=== PATIENT | male | born 2005 | race African-American/Black ===

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

== ENCOUNTER 2025-09-25 11:19 | Emergency (ER) | payer OTHER ==
[~2025-09-25] VITALS: Ht 162.6 cm; Wt 71.9 kg
[~2025-09-25 11:19] MED LIST changes: +AUG875T PO; +AZIT500T PO; +METH4PAK PO
[2025-09-25] MEDS ORDERED: BENZ100C97 PO (12:06)
--- NOTE | 2025-09-25 12:06 | ED.PDOC ---
SOB-HPI HPI Comments 20 year old male with a PMHx asthma, autism brought in by mother presents to the ED with a chief compliant of cough onset 2 days. Patient has been experiencing cough and nasal congestion for the past 2 days. Mother has given patient breathing treatments and Tylenol, last dose was this morning around 07:00. Patient is nonverbal. No other symptoms or modifying factors present at this time. Denies fevers chills night sweats unintentional weight loss Denies persistent chest pain, shortness of breath, leg swelling Denies history of pneumonia Denies recent international travel Chief Complaint: Cough Time Seen by MD: 12:00 Primary Care Provider: HILARY Rob notes: Medications, Allergies Information Source: Relative (Mother) Mode of Arrival: Ambulatory Severity: Moderate Timing: Days Duration: Since onset Context: At Rest PE Risk Factors: None History of: Asthma Prehospital treatment: None Modifying Factors: Nothing Associated Signs and Symptoms: Cough, Nasal Congestion Past Medical History PAST MEDICAL HISTORY: Asthma Surgical History: Denies all surgeries Family History Family History: Reviewed,noncontributory to illness, Unknown Social History Smoker: Non-Smoker Alcohol: Denies ETOH Use Drugs: Denies Drug Use Lives In: Home All Other Systems: Reviewed and Negative (as per HPI) Physical Exam General Appearance: No Apparent Distress, Normal HEENT: Normal ENT Inspection, Pharynx Normal, TMs Normal Neck: Full Range of Motion, Non-Tender, Normal, Normal Inspection Respiratory: Chest Non-Tender, Lungs Clear, No Accessory Muscle Use, No Respiratory Distress, Normal Breath Sounds Cardiovascular: No Edema, No JVD, No Murmur, No Gallop, Normal Peripheral Pulses, Regular Rate/Rhythm Breast Exam: Deferred Gastrointestinal: No Organomegaly, Non Tender, No Pulsatile Mass, Normal Bowel Sounds, Soft Genitalia: Deferred Pelvic: Deferred Rectal: Deferred Extremities: No calf tenderness, Normal capillary refill, Normal inspection, Normal range of motion, Non-tender, No pedal edema Musculoskeletal : Apperance: Normal Neurologic: Alert, neck cutter II-XII nml as Tested, No Motor Deficits, Normal Affect, Normal Mood, No Sensory Deficits Cerebellar Function: Normal Reflexes: Normal Skin: Dry, Normal Color, Warm Lymphatic: No Adenopathy Was a procedure done? Was a procedure done?: No X-Ray, Labs, Meds, VS Vital Signs Date Time Temp Pulse Resp B/P (MAP) Pulse Ox O2 Delivery O2 Flow Rate FiO2 09/25/25 11:20 98.7 90 17 111/80 98 98.7 X-Ray, Labs, Meds, VS Comment 20 year old male with a PMHx asthma, autism brought in by mother presents to the ED with a chief compliant of cough onset 2 days. Patient arrives alert and oriented, ABC's intact, afebrile, vital signs stable, saturating well in room air Additional MDM Review of External, Non-ED records: External records reviewed. Discussion with independent historian (EMS, family) history obtained from the patient/parents (if applicable) at bedside Chronic conditions affecting care: asthma, autism Social determinants of health affecting care: None Consideration of admission (observation or admission): I considered escalation of care to admission for this patient, however given the reassuring workup, the patient is safe for outpatient management. On reevaluation, patient had symptomatic improvement. Patient is stable for discharge at this time. External notes reviewed. Test results and diagnostic imaging interpreted. All diagnostic findings, discharge care, education and instructions provided Follow-up with PCP in 2 to 3 days Patient verbalized understanding and agreed to treatment plan Vital signs stable, afebrile, no acute distress noted Patient ambulatory with strong steady gait Advised to return precautions for any new or worsening symptoms, return to ER immediately for re-evaluation Patient is aware that the purpose of this visit was for an acute medical emergency requiring emergent stabilization. Chronic conditions, including malignancies have not been ruled out. Patient is instructed to follow up with PCP as directed and discharge instructions for continued care and workup. If unable to arrange follow-up, patient is to return to the emergency department for reassessment. Patient (parent or legal guardian if applicable) was given verbal and written discharge instructions and acknowledges understanding. Time of 1ST Reevaluation: 12:30 Reevaluation 1ST: Improved Patient Education/Counseling: Diagnosis, Treatment Family Education/Counseling: Diagnosis, Treatment SEPSIS Sepsis Screen Date sepsis recognized/suspect: Sep 25, 2025 Time Sepsis recognized/suspect: 1120 Recent Procedure: No On Antibiotic Therapy: No Respiratory Rate >20: No Heart Rate >90: Yes Temp<36 C (96.8 F) or >38.3 C: No SBP <90 or MAP <65 mmHG: No New Acute Mental Status Change: No Is the patient on CPAP, BIPAP,: No Vital Signs Date Time Temp Pulse Resp B/P (MAP) Pulse Ox O2 Delivery O2 Flow Rate FiO2 09/25/25 11:20 98.7 90 17 111/80 98 98.7 Departure 1 Departure Time of Disposition: 12:06 Impression: Primary Impression: Bronchitis Disposition: 01 HOME / SELF CARE / HOMELESS Condition: Stable Discharged With: Self, Relative (Mother) Critical Care Note Critical Care Time?: No Stability Stability form required: No Heart Score Heart Score: Heart Score Response (Comments) Value History N/A 0 EKG N/A 0 Age N/A 0 Risk Factors N/A 0 Troponin N/A 0 Total 0 I personally scribed for DEA NOYOLA NP ([email or web address]) on 09/25/25 at 12:06. Electronically submitted by Lyric Ruelas ([email or web address]). DEA NOYOLA NP Sep 25, 2025 12:06
[2025-09-25] MEDS ORDERED: DOXY25SU3 OR (12:27)
[2025-09-25] MEDS: ACETAMINOPHEN 650 mg PER 20.3 mL UD PO ONE (12:30)
[2025-09-25 12:35] VITALS: BP 115/72; PULSE 87; RESP 20; TEMP 100.4; O2SAT 99
== END 2025-09-25 13:22 | disposition home or self-care (01) ==
LOC: ER 11:19
DX: J40 Bronchitis, not specified as acute or chronic (principal)
CPT/HCPCS: 96372; 99283; J1100